=== PATIENT | male | born 1970 | race Caucasian/White ===

== ENCOUNTER 2018-10-06 15:41 | Emergency (ER) | payer OTHER ==
--- NOTE | 2018-10-06 15:52 | ER Report ---
History and Physical Time Seen By MD: 15:46 Hx. of Stated Complaint: chest pain started about 14:15 today. almost drove off the road when it started. brought in by [facility] 325 asa 1 ntg HPI/ROS CHIEF COMPLAINT: chest pain HISTORY OF PRESENT ILLNESS: 47 year old male presents with chest pain. Reports a heaviness in his chest that started at about 1300 today and quickly progressed to chest pain. 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 Reports pain was located in left upper chest. Reports he had associated symptoms of headache, dizziness, and nausea. He pulled over to the side of the road and called 911. 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 He was given nitro and 324mg of Aspirin. He currently reports he no longer has chest pain, headache, dizziness, or nausea. He reports he has hx of angina. He went to the ED about 6 months ago for significant chest pain. Reports he went to a hospital in [place] where they gave him nitro. He reports he has since taken all of the nitro he was prescribed. Denies a known history of CVD. He also reports a hx of PTSD and anxiety. REVIEW OF SYSTEMS: Constitutional: No fever Respiratory: No cough, no dyspnea. Cardiovascular: No chest pain, no palpitations. Gastrointestinal: No vomiting, no abdominal pain. Musculoskeletal: No back pain. Allergies: Coded Allergies: No Known Drug Allergies (Unverified , 10/06/18) Home Meds Reported Medications Duloxetine HCl (Duloxetine HCl) 60 Mg Capsule.dr, 40 MG DAILY 10/06/18 Aripiprazole (ABILIFY) 10 Mg Tablet, 10 MG PO QDAY, TAB 10/06/18 Carbamazepine (TEGRETOL XR) 400 Mg Tab.er.12h, 400 MG PO 10/06/18 Gabapentin (GABAPENTIN) 300 Mg Capsule, 800 MG PO TID, CAPSULE 10/06/18 Past Medical/Surgical History Past medical hx of angina, GERD, PTSD, bipolar disorder, anxiety, bilateral carpal tunnel. No past surgical hx. Reviewed Nurses Notes: Yes Constitutional Vital Sign - Last 24 Hours 10/06/18 10/06/18 10/06/18 10/06/18 15:41 15:43 15:45 15:56 Temp 98.7 Pulse 60 61 66 Resp 14 75 B/P (MAP) 117/78 (91) 117/78 122/70 (87) Pulse Ox 92 92 94 O2 Delivery Room Air 10/06/18 10/06/18 10/06/18 10/06/18 16:00 16:11 16:15 16:26 Pulse 69 ??? Resp 7 B/P (MAP) 114/86 (95) 112/89 (97) Pulse Ox 94 10/06/18 10/06/18 10/06/18 10/06/18 16:30 16:37 16:41 16:45 Pulse 70 Resp 20 B/P (MAP) 126/83 (97) 128/90 (103) 143/85 (104) Pulse Ox 93 10/06/18 10/06/18 10/06/18 10/06/18 16:56 17:00 17:11 17:15 Pulse 77 74 Resp 12 15 B/P (MAP) 125/91 (102) 114/93 (100) Pulse Ox 93 93 10/06/18 10/06/18 10/06/18 10/06/18 17:26 17:30 17:35 17:45 Pulse 84 80 Resp 19 22 B/P (MAP) 128/86 (100) 112/98 (103) Pulse Ox 93 94 10/06/18 10/06/18 10/06/18 10/06/18 17:50 18:00 18:05 18:15 Pulse 82 77 Resp 30 34 B/P (MAP) 128/87 (101) 121/83 (96) Pulse Ox 94 94 10/06/18 10/06/18 10/06/18 18:20 18:30 18:35 Pulse 90 85 Resp 15 15 B/P (MAP) 108/74 (85) Pulse Ox 91 93 Physical Exam General Appearance: The patient is alert, has no immediate need for airway protection and no current signs of toxicity. Eyes: Pupils equal and round no injection. Respiratory: Chest is non tender, lungs are clear to auscultation. Cardiac: regular rate and rhythm Gastrointestinal: Abdomen is soft and non tender, no masses, bowel sounds normal. Musculoskeletal: Neck: Neck is supple and non tender. Extremities have full range of motion and are non tender. Tenderness to palpation in left pectoral muscle. Skin: No rashes or lesions. DIFFERENTIAL DIAGNOSIS: After history and physical exam differential diagnosis was considered for AL, pneumonia, anxiety. Medical Decision Making Data Points Result Diagram: 10/06/18 1538 10/06/18 1538 Laboratory Hematology Test 10/06/18 15:38 White Blood Count 5.9 k/uL (4.5-11.0) Red Blood Count 5.40 M/uL (4.00-5.60) Hemoglobin 16.5 g/dL (14.0-18.0) Hematocrit 48.0 % (42.0-52.0) Mean Corpuscular Volume 88.8 fL (80.0-96.0) Mean Corpuscular Hemoglobin 30.5 pg (26.0-33.0) Mean Corpuscular Hemoglobin Concent 34.3 g/dL (32.0-36.0) Red Cell Distribution Width 14.4 % (11.5-14.5) Platelet Count 275 K/uL (150-450) Mean Platelet Volume 8.6 fL (7.2-11.1) Neutrophils (%) (Auto) 60.7 % (39.4-72.5) Lymphocytes (%) (Auto) 27.5 % (17.6-49.6) Monocytes (%) (Auto) 6.9 % (4.1-12.4) Eosinophils (%) (Auto) 4.3 % (0.4-6.7) Basophils (%) (Auto) 0.6 % (0.3-1.4) Nucleated RBC Relative Count (auto) 0.5 /100WBC Neutrophils # (Auto) 3.6 K/uL (2.0-7.4) Lymphocytes # (Auto) 1.6 K/uL (1.3-3.6) Monocytes # (Auto) 0.4 K/uL (0.3-1.0) Eosinophils # (Auto) 0.3 K/uL (0.0-0.5) Basophils # (Auto) 0.0 K/uL (0.0-0.1) Nucleated RBC Absolute Count (auto) 0.03 K/uL Chemistry Test 10/06/18 15:38 10/06/18 17:40 Sodium Level 140 mmol/L (137-145) Potassium Level 4.2 mmol/L (3.5-5.0) Chloride Level 106 mmol/L (98-107) Carbon Dioxide Level 23 mmol/L (22-30) Blood Urea Nitrogen 13 mg/dl (9-21) Creatinine 0.80 mg/dl (0.66-1.25) Glomerular Filtration Rate Calc > 60.0 Random Glucose 95 mg/dl (75-110) Calcium Level 9.4 mg/dl (8.4-10.2) Total Bilirubin 0.3 mg/dl (0.2-1.3) Aspartate Amino Transf (AST/SGOT) 26 U/L (0-35) Alanine Aminotransferase (ALT/SGPT) 48 U/L (0-56) Alkaline Phosphatase 96 U/L (0-126) Total Protein 7.0 g/dl (6.3-8.2) Albumin 4.0 g/dl (3.5-5.0) Troponin I < 0.012 ng/ml EKG/Imaging EKG Interpretation 12 lead EKG: Rhythm: normal sinus rhythm of ventricular rate of 69 [place]: normal QRS: normal ST segments: normal Monitor Interpretation: Normal Sinus Rhythm Imaging PATIENT NAME: Ambrosio Diaz : 1970 MR: [id number] V: [id number] EXAM DATE: ORDERING PHYSICIAN: JALEN AWAD TECHNOLOGIST: Location: [facility] [place] Patient: Ambrosio Diaz : 1970 Visit/Account:[id number] Date of Sevice: 10/06/2018 CHEST PA LAT HISTORY: Chest pain. Shortness of breath. COMPARISON: None FINDINGS: Cardiomediastinal contours: The heart size is normal. Lungs and pleura: There is no finding of an infiltrate, lymphadenopathy or pleural effusion. Bones/soft tissues: There are no findings of a fracture. IMPRESSION: Normal chest x-ray without findings of acute disease. ED Course/Re-evaluation ED Course Upon arrival to the ED, patient admitted to an exam room, hx and physical obtained, differentials considered. Patient presents with chest pain. Reports a heaviness in his chest that started at about 1300 today and quickly progressed to chest pain. 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 Reports pain was located in left upper chest. Reports he had associated symptoms of headache, dizziness, and nausea. He pulled over to the side of the road and called 911. 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 He was given nitro and 324mg of Aspirin. He currently reports he no longer has chest pain, headache, dizziness, or nausea. He reports he has hx of angina. He went to the ED about 6 months ago for significant chest pain. Reports he went to a hospital in [place] where they gave him nitro. He reports he has since taken all of the nitro he was prescribed. Denies a known history of CVD. He also reports a hx of PTSD and anxiety. He smokes 1 pack of cigarettes a day. On exam, heart rate and rhythm regular. Lungs clear to auscultation. He does have tenderness in left pectoral muscle. IV started. CBC, CMP, troponin, EKG, chest x-ray obtained. CBC, CMP benign. Troponin negative. EKG showed normal sinus rhythm with ventricular rate of 69. Chest x-ray with no signs of acute cardiopulmonary process. Troponin was repeated 1 hour later and was negative. Chest pain was likely due to his stress and anxiety. Patient agrees with this. Will discharge patient home. He is in agreement with plan of care. Decision to Disposition Date: Oct 06, 2018 Decision to Disposition Time: 18:35 Depart Departure Latest Vital Signs Vital Signs Date Time Temp Pulse Resp B/P (MAP) Pulse Ox O2 Delivery O2 Flow Rate FiO2 10/06/18 18:35 85 15 93 10/06/18 18:30 108/74 (85) 10/06/18 15:43 98.7 Room Air Impression: Primary Impression: Chest pain Condition: Improved Disposition: HOME OR SELF-CARE Patient Instructions: Chest Pain (ED) Additional Instructions: Drink plenty of water and get plenty of rest. Get plenty of sleep tonight. Continue current medications as prescribed. Follow-up with your primary care provider as soon as you get back home. Return to the ER if you experience chest pain, any difficulty breathing, vomiting, or for any other concern. Problem Qualifiers Primary Impression: Chest pain Chest pain type: unspecified Qualified Codes: R07.9 - Chest pain, unspecified JALEN AWAD Oct 06, 2018 15:52
[2018-10-06 16:08] LABS: PLATELET COUNT, AUTOMATED 275 K/uL (150-450)
--- NOTE | 2018-10-06 16:50 | RADIOLOGY IMAGING REPORT ---
FACILITY: [facility] PATIENT NAME: Ambrosio Diaz : 1970 MR: [id number] V: [id number] EXAM DATE: ORDERING PHYSICIAN: JALEN AWAD TECHNOLOGIST: Location: [facility] [place] Patient: Ambrosio Diaz : 1970 Visit/Account:[id number] Date of Sevice: 10/06/2018 CHEST PA LAT HISTORY: Chest pain. Shortness of breath. COMPARISON: None FINDINGS: Cardiomediastinal contours: The heart size is normal. Lungs and pleura: There is no finding of an infiltrate, lymphadenopathy or pleural effusion. Bones/soft tissues: There are no findings of a fracture. IMPRESSION: Normal chest x-ray without findings of acute disease. Report Dictated By: Ulises Garcia MD at 10/06/2018 4:43 PM Report E-Signed By: Ulises Garcia MD at 10/06/2018 4:44 PM WSN:[id number]
[2018-10-06] MEDS ORDERED: DULoxetine HCL 20 MG CAPCR PO ONE (17:05)
[2018-10-06] MEDS ORDERED: ARIPiprazole 10 MG TAB PO ONE (17:05)
[2018-10-06] MEDS ORDERED: GABAPENTIN 300 MG CAP PO ONE ×2 (17:05→17:15)
[2018-10-06] MEDS ORDERED: GABAPENTIN 100 MG CAP PO ONE (17:15)
[2018-10-06] MEDS ORDERED: ARIP10TA4 PO (17:40)
[2018-10-06] MEDS ORDERED: CARB400T8 PO (17:40)
[2018-10-06] MEDS ORDERED: GABA-549 PO (17:40)
[2018-10-06] MEDS ORDERED: DULO60CA7 (17:40)
--- NOTE | 2018-10-06 18:27 | EKG ---
FACILITY: [facility] [place] PATIENT NAME: ABDIAS SUTTON : [id number] MR: [id number] V: [id number] EXAM DATE: ORDERING PHYSICIAN: JALEN AWAD TECHNOLOGIST: Test Reason : chest pain Blood Pressure : / mmHG Vent. Rate : 069 BPM Atrial Rate : 069 BPM P-R Int : 120 ms QRS Dur : 092 ms QT Int : 394 ms P-R-T Axes : 016 -10 028 degrees QTc Int : 422 ms Normal sinus rhythm Normal ECG No previous ECGs available Confirmed by CLAUDIA LUQUE ([id number]) on 10/07/2018 6:24:19 AM Referred By: Confirmed By:CLAUDIA LUQUE
[2018-10-06 18:30] VITALS: BP 108/74
== END 2018-10-06 18:57 | disposition home or self-care (01) ==
LOC: ER 15:45
DX: R07.9 Chest pain, unspecified (principal)
CPT/HCPCS: 71046; 82040; 82247; 82310; 82374; 82435; 82565; 82947; 84075; 84132; 84155; 84295; 84450; 84460; 84484; 84520; 85025; 93005; 99283